=== PATIENT | male | born 1930 | race Caucasian/White ===

== ENCOUNTER 2017-01-18 06:46 | Inpatient (IN) | payer OTHER ==
[~2017-01-18] VITALS: Ht 172.7 cm; Wt 70.0 kg
--- NOTE | ~2017-01-18 | D ---
[facility] [place] [address] DISCHARGE SUMMARY Name: RAINA FREIRE Room #: 214-P ADM IN M.R.#: [id number] Admission: 01/18/17 Attend Phys: Christopher Jesus MD Discharge: Date of : [birth year] Report #: [id number] THIS REPORT FOR: //name// CC: Uriel Jesus Temo Martinez DATE OF SERVICE: 01/20/2017 DATE OF ADMISSION: 01/18/2017. DATE OF DISCHARGE: 01/20/2017. FINAL DIAGNOSES: 1. Qkglp-[id number] systolic congestive heart failure. 2. Status post biventricular ICD upgrade. 3. Ischemic cardiomyopathy, chronic systolic dysfunction. 4. Acute kidney injury. 5. Coronary artery disease. HOSPITAL SUMMARY: The patient was admitted for elective Bi-V ICD upgrade per Dr. Jesus. The procedure went well without complications. His wound was inspected prior to discharge and was felt to be sterile. Follow up device interrogation was unremarkable. He did present in heart failure, so he was diuresed actively with IV Lasix with a good response. He has a history of chronic kidney disease and on presentation, his creatinine was greater than 2.0 but on discharge it was down to 1.9 and his potassium is 4.1. DISCHARGE MEDICATIONS: Include Lasix 40 mg daily, Aldactone 25 mg daily, baby aspirin, amiodarone 400 mg daily, Synthroid 100 mcg daily and p.r.n. medications remain unchanged. FOLLOWUP: Followup 01/30/[address] Jesus for device check and wound inspection and then follow up with Dr. Temo Martinez his usual marker machine attendant thereafter. PROCEDURES PERFORMED: Biventricular ICD, [employer] dual chamber ICD. By: [id number] [id number] Diony Becerra MD, FACC /nt
--- NOTE | ~2017-01-18 | P ---
[facility] [place] [address] PROCEDURE REPORT Name: RAINA FREIRE Room #: 214-P [facility] IN M.R.#: [id number] Admission: 01/18/17 Attend Phys: Christopher Jesus MD Discharge: Date of : [birth year] Report #: [id number] THIS REPORT FOR: //name// CC: Uriel Martinez DATE OF SERVICE: 01/18/2017 PREOPERATIVE DIAGNOSES: 1. Ischemic cardiomyopathy. 2. Left bundle branch block. 3. Sick sinus syndrome. 4. Acute on chronic renal insufficiency. 5. Coronary artery disease. POSTOPERATIVE DIAGNOSES: 1. Ischemic cardiomyopathy. 2. Left bundle branch block. 3. Sick sinus syndrome. 4. Acute on chronic renal insufficiency. 5. Coronary artery disease. HISTORY: The patient is an 86-year-old with a history of an ischemic cardiomyopathy, EF of 22%, status post placement of an ICD back in 04/2015 for secondary prevention of sudden who has had increased ventricular arrhythmias requiring higher doses of amiodarone. He has an EF of 22%, left bundle branch block and sick sinus syndrome. The patient has class 2-3 heart failure symptoms. He is here for upgrade to a Bi-V ICD. ANESTHESIA: The patient underwent MAC anesthesia with no anesthesia related complications. PROCEDURE: The patient underwent informed consent. We discussed the details of the procedure including the risks, which include but not limited to bleeding, infection, vascular damage, cardiac perforation and pneumothorax. He understood these risks and was willing to proceed. As such, he was brought to the EP laboratory in a fasting and sedated state and prepped and draped in a sterile fashion. He received IV vancomycin for antibiotic prophylaxis and underwent a venogram to assess patency of the left axillary vein. We had used a total of 20 mL of contrast to perform his venogram. Next, I injected 20 mL of lidocaine below the level of left clavicle. An incision was made and the chronic pocket was entered. I made some room for the larger device and performed an anterior capsulectomy. Next, I obtained access to the left axillary vein twice using the extrathoracic approach. Guidewires were noted under fluoroscopy to enter the right atrium. Next, sheaths were positioned using the modified [facility] [address] [place] [address] PROCEDURE REPORT Name: RAINA FREIRE Room #: 214-P [facility] IN .R.#: [id number] Admission: 01/18/17 Attend Phys: Christopher Jesus MD Discharge: Date of : [birth year] Report #: [id number] technique and an atrial lead was positioned in the right atrial appendage. Of note, the patient had almost no atrial activity with an underlying sinus rate in the 30s and 40s. Thresholds were somewhat high, but we eventually found a nice location with a stable sensing and pacing threshold. Next, I placed a coronary sinus guide sheath down into the right atrium under fluoroscopy. Next, I was able to enter the coronary sinus. I performed a venogram, which showed that there was a middle cardiac vein and an anterolateral branch. Both the anterolateral branch and the middle cardiac vein connected to one another. There were no other vessels noted. As such, I took a quadripolar lead into the anterior lateral branch and at this site, there was good pacing and sensing thresholds and there was no phrenic nerve capture. The sheath was split and the lead remained in position. The lead was then sutured to the prepectoral fascia. Next, the leads were connected to the new device. The atrial sensing port on the Biotron[employer] lead was capped. This was not a true pacing lead. It was just an atrial sensing bipole. Due to his chronic renal insufficiency and advanced age, I decided to place a IIIMOBI antibiotic pouch because I felt the patient was higher risk for infection given these factors. The pocket was irrigated with vancomycin solution and then, the pocket was closed in 3 layers using 2-0 for the deep layer, 3-0 for the mid layer and 4-0 for the subcuticular layer. I placed Steri-Strips on the skin. The patient received a total of 45 mL of contrast. His recent labs showed that his prior creatinine was about 1.5 and today was 2.0. There was 15 mL of blood loss. The patient awoke neurologically and hemodynamically intact with no complications and no significant bleeding. The explanted device was a [employer] Iforia 7, serial #[id number]. This was originally implanted on 04/29/2015. The newly implanted device was a [employer] model #[id number], serial #[id number]. The newly implanted atrial lead was a [employer] model #2088TC, 52 cm, serial #[id number]. The atrial lead demonstrated no underlying P waves, but prior to connecting the device, there were P waves at around 2 millivolts. The pacing impedance was 510 ohms and the pacing threshold was 0.5 volts at 0.5 milliseconds. The RV lead that was previously implanted on 04/29/2015 was a [employer] Linox DX serial #[id number]. This was a single coil lead. This did have the atrial sensing bipole that was capped. This lead demonstrated an R-wave of 11.4 millivolts, pacing impedance of 430 ohms and pacing threshold 0.75 volts at 0.5 milliseconds. The LV lead was a [employer] model #1458, 86 cm, serial #[id number]. This lead demonstrated a pacing impedance of 640 ohms and a pacing threshold of 1.75 volts at 0.5 milliseconds programmed in the 2 middle bipoles. There was no phrenic nerve capture at this site. The device was programmed to the DDDR 60-130 mode with the LV lead pacing 30 milliseconds prior to the RV lead and this resulted in the greatest narrowing of his QRS complex. His VT zone was set at 167 beats per minute with 3 rounds of bursts followed by 3 rounds of ramp followed by max output shocks. The VF zone was set at greater than 200 beats per minute with ATP while charging followed by max output shocks. CONCLUSIONS: 1. Successful upgrade to a biventricular ICD. [facility] [address] [place] [address] PROCEDURE REPORT Name: RAINA FREIRE NAVDEEP Room #: 214-P [facility] IN M.R.#: [id number] Admission: 01/18/17 Attend Phys: Christopher Jesus MD Discharge: Date of : [birth year] Report #: [id number] 2. Satisfactory atrial, right ventricular and left ventricular pacing and sensing thresholds. 3. Implantation of a IIIMOBI antibiotic pouch due to high risk of infection given multiple comorbidities. <ELECTRONICALLY SIGNED> By: Christopher Jesus MD 01/19/17 1104 [id number] 1434 Christopher Jesus MD /scotty
--- NOTE | ~2017-01-18 | EKG ---
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 : 1930 Requested By: Christopher Jesus Order Number: [id number] MD: Merrick Burger Measurements Intervals [place] Rate: 60 P: [place]: 200 QRS: -52 QRSD: 188 T: 118 QT: 546 QTc: 546 Interpretive Statements Atrial-ventricular dual-paced complexes No further rhythm analysis attempted due to paced rhythm Left bundle branch block Compared to ECG 11/22/1995 23:05:00 pacing is now present Electronically Signed On 01-19-2017 8:17:38 CDT by Merrick Burger [email or web address] <ELECTRONICALLY SIGNED> By: Merrick Burger MD, [facility] 01/19/17 0817 [id number] Merrick Burger MD, [facility] /EPI
--- NOTE | ~2017-01-18 | EKG ---
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 01/20/17 1120 7 09 Merrick Burger MD, [facility] /EPI
[2017-01-18] MEDS ORDERED: PACERONE 200 M200 M1 PO (07:03)
[2017-01-18] MEDS ORDERED: LASIX 40 MG TAB40 M2 PO (07:04)
[2017-01-18] MEDS ORDERED: RESTORIL30 MG PO (07:06)
[2017-01-18] MEDS ORDERED: LEVOTHYROXINE 0.1 MG PO (07:07)
[2017-01-18] MEDS ORDERED: OMEPRAZOLE40 MG PO (07:08)
[2017-01-18] MEDS ORDERED: CARVEDILOL3.125 MG PO (07:09)
[2017-01-18] MEDS ORDERED: MAGNESIUM OXID400 MG PO (07:10)
[2017-01-18 07:11] VITALS: BP 166/70
[2017-01-18] MEDS ORDERED: CARDURA4 MG PO (07:11)
[2017-01-18] MEDS ORDERED: ASPIR 8181 MG PO (07:12)
[2017-01-18] MEDS ORDERED: ALDACTONE25 MG PO (07:13)
[2017-01-18] MEDS ORDERED: VITAMIN B-12500 MCG PO (07:14)
[2017-01-18] MEDS ORDERED: LIPITOR10 MG PO (07:15)
[2017-01-18] MEDS ORDERED: DUONEB 2.5-0.5 M3 ML INH (07:15)
[2017-01-18] MEDS ORDERED: MUCINEX TA600 MG/TA2 PO (07:16)
[2017-01-18] MEDS ORDERED: REGLAN 5 MG TAB5 MG PO (07:16)
[2017-01-18] MEDS ORDERED: SODIUM BICARBO650 M3 PO (07:18)
[2017-01-18] MEDS ORDERED: VITAMIN D1000 UNI1 PO (07:19)
[2017-01-18] MEDS ORDERED: SALINE NASAL SP30 ML NS (07:20)
[2017-01-18] MEDS ORDERED: MIRALAX17 GM PO (07:21)
[2017-01-18] MEDS ORDERED: MELATONIN3 MG PO (07:21)
[2017-01-18] MEDS ORDERED: APAP500 PO (07:22)
[2017-01-18 07:38] LABS: ABSOLUTE NEUTROPHILS 3.3 thou/uL (1.4-8.2); BASOPHILS 1.4 % (0.0-2.0); EOSINOPHILS 3.3 % (0.0-3.0); HEMATOCRIT 39.6 % (42.0-52.0); HEMOGLOBIN 12.8 gm/dL (14.0-18.0); LYMPHOCYTES 16.8 % (24.0-44.0); MCH 30.4 pg (26.0-34.0); MCHC 32.2 g/dL (28.0-37.0); MCV 94.3 fL (80.0-100.0); MONOCYTES 8.7 % (1.0-8.0); PLATELET COUNT 192 thou/uL (150-400); POLYS 69.8 % (36.0-66.0); RDW 15.9 % (10.5-14.5); WBC 4.7 thou/uL (4.0-11.0)
[2017-01-18 07:40] LABS: MANUAL DIFF NO
[2017-01-18 07:53] LABS: CALCIUM 8.5 mg/dL (8.5-10.1); POTASSIUM 5.5 mmol/L (3.5-5.1)
[2017-01-18 08:04] LABS: APTT 25.8 Seconds (24.5-32.8); INR 1.1; PROTIME 10.9 Seconds (9.3-11.4)
[2017-01-18 12:15] VITALS: BP 163/84
[2017-01-18 16:00] VITALS: BP 145/68
[2017-01-18 19:40] VITALS: BP 153/81
[2017-01-18 23:24] VITALS: BP 129/75
[2017-01-19 03:26] LABS: BASOPHILS 0.7 % (0.0-2.0); EOSINOPHILS 2.4 % (0.0-3.0); HEMATOCRIT 38.2 % (42.0-52.0); HEMOGLOBIN 12.7 gm/dL (14.0-18.0); MANUAL DIFF NO; MCH 30.5 pg (26.0-34.0); MCHC 33.3 g/dL (28.0-37.0); MCV 91.4 fL (80.0-100.0); MONOCYTES 11.7 % (1.0-8.0); PLATELET COUNT 189 thou/uL (150-400); POLYS 71.2 % (36.0-66.0); RBC 4.18 mil/uL (4.50-6.00); RDW 15.6 % (10.5-14.5); WBC 4.3 thou/uL (4.0-11.0)
[2017-01-19 03:33] LABS: INR 1.1; PROTIME 11.4 Seconds (9.3-11.4)
[2017-01-19 03:34] LABS: CALCIUM 8.4 mg/dL (8.5-10.1); CREATININE 1.9 mg/dL (0.7-1.3)
[2017-01-19 03:36] LABS: POTASSIUM 4.1 mmol/L (3.5-5.1)
[2017-01-19 04:04] LABS: OVALOCYTES 1+
[2017-01-19 04:05] LABS: LARGE PLATELETS RARE
[2017-01-19 04:06] VITALS: BP 118/65
[2017-01-19 08:00] VITALS: BP 143/71
[2017-01-19 12:00] VITALS: BP 129/71
[2017-01-19 16:50] VITALS: BP 147/80
[2017-01-19 19:32] VITALS: BP 131/58
[2017-01-20 03:39] VITALS: BP 118/69
[2017-01-20 07:47] VITALS: BP 135/64
[2017-01-20 11:37] VITALS: BP 136/67
[2017-01-20 12:08] VITALS: BP 136/67
== END 2017-01-20 15:14 | disposition home or self-care (01) | DRG 227 ==
LOC: CATH 06:46 → 2N 12:25 → CATH 13:41 → 2N 01-20 15:14
PROVIDERS: Internal Medicine Cardiovascular Disease
PROC: 02PA3MZ Removal of Cardiac Lead from Heart, Percutaneous Approach (ICD-10-PCS; principal; 2017-01-18)
PROC: 02HK3KZ Insertion of Defibrillator Lead into Right Ventricle, Percutaneous Approach (ICD-10-PCS; principal; 2017-01-18)
PROC: 02HL3KZ Insertion of Defibrillator Lead into Left Ventricle, Percutaneous Approach (ICD-10-PCS; principal; 2017-01-18)
PROC: 0JPT0PZ Removal of Cardiac Rhythm Related Device from Trunk Subcutaneous Tissue and Fascia, Open Approach (ICD-10-PCS; principal; 2017-01-18)
PROC: 02H63KZ Insertion of Defibrillator Lead into Right Atrium, Percutaneous Approach (ICD-10-PCS; principal; 2017-01-18)
PROC: 0JH609Z Insertion of Cardiac Resynchronization Defibrillator Pulse Generator into Chest Subcutaneous Tissue and Fascia, Open Approach (ICD-10-PCS; principal; 2017-01-18)
DX: I50.23 Acute on chronic systolic (congestive) heart failure (principal); N17.9 Acute kidney failure, unspecified; I47.2 Ventricular tachycardia; N18.9 Chronic kidney disease, unspecified; I25.5 Ischemic cardiomyopathy; I25.10 Atherosclerotic heart disease of native coronary artery without angina pectoris; I49.5 Sick sinus syndrome; E87.6 Hypokalemia; N13.9 Obstructive and reflux uropathy, unspecified; I44.7 Left bundle-branch block, unspecified